=== PATIENT | female | born 1980 | race Caucasian/White ===

== ENCOUNTER 2021-03-17 19:46 | Emergency (ER) | payer SELFPAY ==
[~2021-03-17] VITALS: Ht 172.7 cm; Wt 127.0 kg
[2021-03-17] MEDS ORDERED: BACTRIM 400-801 EACH PO (20:23)
[2021-03-17] MEDS ORDERED: CEPHALEXIN500 MG PO (20:23)
== END 2021-03-17 20:47 | disposition home or self-care (01) ==
LOC: ER 20:20
DX: L02.01 Cutaneous abscess of face (principal)
CPT/HCPCS: 99282

== ENCOUNTER 2022-10-21 11:42 | Emergency (ER) | payer SELFPAY ==
[~2022-10-21] VITALS: Ht 172.7 cm; Wt 158.8 kg
[~2022-10-21 11:42] MED LIST: BACTRIM 400-801 EACH PO; CEPHALEXIN500 MG PO
[2022-10-21] MEDS ORDERED: SODIUM CHLORIDE 0.9% 1000ML 1,000 ML IV STA (12:09)
[2022-10-21 12:36] LABS: BASOPHILS # (AUTO) 0.1 (0.0-0.1); BASOPHILS % 0.6 % (0.0-1.0); EOSINOPHILS # (AUTO) 0.2 (0.0-0.4); EOSINOPHILS % 1.6 % (0.0-6.0); HEMATOCRIT 43.3 % (34.2-44.1); HEMOGLOBIN 14.5 g/dL (12.0-16.0); LYMPHOCYTES # (AUTO) 3.1 (1.0-3.2); LYMPHOCYTES % 26.4 % (18.0-39.1); MEAN CORPUSCULAR HGB CONC 33.5 g/dL (31-35); MEAN CORPUSCULAR VOLUME 95.6 fL (81-99); MONOCYTES # (AUTO) 0.7 (0.2-0.8); MONOCYTES % 5.7 % (4.4-11.3); NEUTROPHILS # (AUTO) 7.7 (2.1-6.9); NEUTROPHILS % 64.9 % (38.7-80.0); PLATELET COUNT 443 x10e3/uL (140-360); RED BLOOD COUNT 4.53 x10e6/uL (3.6-5.1); RED CELL DISTRIBUTION WIDTH 12.6 % (11.7-14.4)
[2022-10-21 12:43] LABS: ALANINE AMINOTRANSFERASE 31 IU/L (0-55); ALBUMIN 3.3 g/dL (3.5-5.0); ALBUMIN/GLOBULIN RATIO 0.9 (0.8-2.0); ALKALINE PHOSPHATASE 83 IU/L (40-150); BLOOD UREA NITROGEN 10 mg/dL (7-26); BUN/CREATININE RATIO 14 (6-25); CARBON DIOXIDE 22 mmol/L (22-29); CHLORIDE 108 mmol/L (98-107); CREATINE KINASE 83 IU/L (29-168); CREATININE, SERUM 0.72 mg/dL (0.57-1.11); GLUCOSE 153 mg/dL (74-118); SODIUM 141 mmol/L (136-145)
[2022-10-21] MEDS ORDERED: BENZONATATE200 MG PO (14:20)
[2022-10-21] MEDS ORDERED: MECLIZINE HCL12.5 MG PO (14:21)
== END 2022-10-21 15:14 | disposition home or self-care (01) ==
LOC: ER 12:00
DX: R07.89 Other chest pain (principal); J06.9 Acute upper respiratory infection, unspecified; R05.9 Cough, unspecified; R42 Dizziness and giddiness; R09.89 Other specified symptoms and signs involving the circulatory and respiratory systems; R73.9 Hyperglycemia, unspecified; F17.210 Nicotine dependence, cigarettes, uncomplicated
CPT/HCPCS: 36415; 71046; 80053; 82550; 82553; 83880; 84484; 84702; 85025; 93005; 99284; J7030

== ENCOUNTER 2024-11-22 17:27 | Emergency (ER) | payer SELFPAY ==
[~2024-11-22] VITALS: Ht 172.7 cm; Wt 148.8 kg
[~2024-11-22 17:27] MED LIST changes: +AUGMENTIN 500-1 EACH PO; +AZITHROMYCIN250 MG PO; +BENZONATATE200 MG PO; +BROMFED DM COU118 ML PO; +MECLIZINE HCL12.5 MG PO; +PREDNISONE50 MG PO; +ULTRAM 50MG50 MG PO; +VENTOLIN HFA18 GM INH
[2024-11-22 18:03] LABS: BASOPHILS % 0.3 % (0.0-1.0); EOSINOPHILS # (AUTO) 0.2 (0.0-0.4); EOSINOPHILS % 1.6 % (0.0-6.0); HEMOGLOBIN 14.3 g/dL (12.0-16.0); LYMPHOCYTES # (AUTO) 3.9 (1.0-3.2); LYMPHOCYTES % 31.5 % (18.0-39.1); MEAN CORPUSCULAR HEMOGLOBIN 31.5 pg (28-32); MEAN CORPUSCULAR VOLUME 92.5 fL (81-99); MONOCYTES # (AUTO) 0.7 (0.2-0.8); MONOCYTES % 5.5 % (4.4-11.3); NEUTROPHILS # (AUTO) 7.5 (2.1-6.9); NEUTROPHILS % 60.5 % (38.7-80.0); PLATELET COUNT 449 x10e3/uL (140-360); RED BLOOD COUNT 4.54 x10e6/uL (3.6-5.1); RED CELL DISTRIBUTION WIDTH 12.8 % (11.7-14.4); WHITE BLOOD COUNT 12.44 x10e3/uL (4.8-10.8)
[2024-11-22 18:20] LABS: AMPHETAMINES SCREEN,URINE NEGATIVE (NEGATIVE); BENZODIAZEPINES SCREEN,URINE NEGATIVE (NEGATIVE); CANNABINOIDS SCREEN,URINE NEGATIVE (NEGATIVE); COCAINE SCREEN,URINE NEGATIVE (NEGATIVE); METHADONE SCREEN, URINE NEGATIVE (NEGATIVE); OPIATES SCREEN,URINE NEGATIVE (NEGATIVE); PHENCYCLIDINE SCREEN,URINE NEGATIVE (NEGATIVE)
[2024-11-22 18:27] LABS: ALBUMIN 3.5 g/dL (3.5-5.0); ALBUMIN/GLOBULIN RATIO 0.9 (0.8-2.0); BILIRUBIN,TOTAL 0.2 mg/dL (0.2-1.2); CREATININE, SERUM 0.73 mg/dL (0.57-1.11); TOTAL PROTEIN 7.4 g/dL (6.5-8.1)
[2024-11-22 18:28] LABS: LIPASE 18 U/L (8-78)
[2024-11-22 18:34] LABS: TROPONIN I 0.002 ng/mL (0-0.300)
[2024-11-22] MEDS: ASPIRIN 81 MG CHEW TAB PO ONE (18:47)
[2024-11-22] MEDS: KETOROLAC TROMETHAMINE 30 MG/ML VIAL IV STA (18:48)
[2024-11-22 20:13] LABS: CREATINE KINASE 53 IU/L (29-168)
[2024-11-22 20:22] LABS: TROPONIN I < 0.001 ng/mL (0-0.300)
[2024-11-22 21:10] VITALS: PULSE 75; RESP 17; TEMP 98; O2SAT 97
== END 2024-11-22 21:15 | disposition home or self-care (01) ==
LOC: ER 18:00
DX: R06.02 Shortness of breath (principal); R07.89 Other chest pain; R11.2 Nausea with vomiting, unspecified; R53.81 Other malaise; R94.31 Abnormal electrocardiogram [ECG] [EKG]; F17.210 Nicotine dependence, cigarettes, uncomplicated
CPT/HCPCS: 36415; 71045; 80053; 80307; 82550; 83690; 83880; 84484; 84702; 85025; 85379; 93005; 99284; J1885